=== PATIENT | female | born 1985 | race African-American/Black ===

== ENCOUNTER 2019-04-14 10:28 | Emergency (ER) | payer OTHER | END 2019-04-14 16:22 | disposition left against medical advice (07) | LOC: JER 10:28 ==

== ENCOUNTER 2022-06-28 15:05 | Emergency (ER) | payer OTHER ==
[2022-06-28 15:26] VITALS: BP 111/72; PULSE 63; RESP 18; TEMP 98; BMI 33.9
[2022-06-28] MEDS ORDERED: CYCLOBENZAPRINE HCL 10 MG TABLET (FP) PO ONE (16:35)
[2022-06-28] MEDS ORDERED: IBUPROFEN 600 MG TABLET (FP) PO ONE (16:35)
== END 2022-06-28 18:15 | disposition home or self-care (01) ==
LOC: JERFT 15:05
DX: S39.012A Strain of muscle, fascia and tendon of lower back, initial encounter (principal); V43.52XA Car driver injured in collision with other type car in traffic accident, initial encounter
CPT/HCPCS: 99283-25

== ENCOUNTER 2022-07-09 22:18 | Emergency (ER) | payer OTHER ==
[2022-07-09 22:43] VITALS: BP 117/69; PULSE 57; RESP 20; TEMP 98.2; BMI 33.9
[2022-07-09] MEDS ORDERED: IBUPROFEN 600 MG TABLET (FP) PO ONE (23:38)
[2022-07-10] MEDS ORDERED: IBUPROFEN 600 MG TABLET (FP) PO ONE (00:08)
== END 2022-07-10 00:19 | disposition home or self-care (01) ==
LOC: JER 22:18
DX: M54.2 Cervicalgia (principal); M54.50 Low back pain, unspecified; V43.52XA Car driver injured in collision with other type car in traffic accident, initial encounter
CPT/HCPCS: 99283-25

== ENCOUNTER 2023-01-14 19:38 | Emergency (ER) | payer OTHER ==
[2023-01-14 19:49] VITALS: BP 127/74; PULSE 71; RESP 20; TEMP 98.7; BMI 34.7
[2023-01-14] MEDS ORDERED: DIPHTH,PERTUSS(ACELL),TET 0.5 ML DISP.SYRIN IM ONE ×2 (20:28→20:47)
[2023-01-14] MEDS ORDERED: ACETAMINOPHEN 325 MG TABLET (FP) PO ONE (20:28)
[2023-01-14] MEDS ORDERED: ACETAMINOPHEN 325 MG TABLET (FP) ONE (20:46)
== END 2023-01-14 22:05 | disposition home or self-care (01) ==
LOC: JER 19:38
PROC: 3E0234Z Introduction of Serum, Toxoid and Vaccine into Muscle, Percutaneous Approach (ICD-10-PCS; principal; 2023-01-14)
DX: S89.91XA Unspecified injury of right lower leg, initial encounter (principal); V43.62XA Car passenger injured in collision with other type car in traffic accident, initial encounter
CPT/HCPCS: 73562-TC-RT-FY; 73590-TC-RT-FY; 90471; 90715; 99283-25

== ENCOUNTER 2024-01-05 02:19 | Emergency (ER) | payer OTHER ==
[2024-01-05 02:26] VITALS: BP 131/71; PULSE 79; RESP 18; TEMP 98.2; BMI 35.9
[2024-01-05] MEDS ORDERED: METHOCARBAMOL 500 MG TABLET ONE (03:09)
[2024-01-05] MEDS ORDERED: IBUPROFEN 600 MG TABLET (FP) PO ONE (03:09)
[2024-01-05] MEDS ORDERED: LIDOCAINE 4% PATCH TP ONE (03:10)
[2024-01-05] MEDS: METHOCARBAMOL 500 MG TABLET PO ONE (03:12)
[2024-01-05] MEDS: LIDOCAINE 5% TOPICAL PATCH TP ONE (03:12)
[2024-01-05] MEDS: IBUPROFEN 600 MG TABLET (FP) PO ONE (03:12)
[2024-01-05] MEDS ORDERED: LIDOCAINE PATCH REMOVAL MC ONE (15:00)
== END 2024-01-05 05:29 | disposition home or self-care (01) ==
LOC: JER 02:19
DX: M54.40 Lumbago with sciatica, unspecified side (principal); M25.561 Pain in right knee; S39.92XA Unspecified injury of lower back, initial encounter
CPT/HCPCS: 72070-TC-FY; 72100-TC-FY; 99283-25